=== PATIENT | female | born 1945 ===

== ENCOUNTER 2023-11-20 14:15 | Day surgery (SDC) | payer BC, SELFPAY ==
[2023-11-20] VITALS (10 sets, daily range): BP systolic 125–196; BP diastolic 65–179; BMI 23.2
[2023-11-20 13:54] LABS: Glucose - Point of Care 131 mg/dl (70-99)
[2023-11-20] MEDS: ZOFRAN 4 MG IV (17:05)
[2023-11-20 17:12] LABS: Glucose - Point of Care 130 mg/dl (70-99)
== END 2023-11-20 18:00 | disposition short-term general hospital (02) ==
LOC: SDS 14:15
PROVIDERS: ATTENDING PHYSICIAN Internal Medicine Gastroenterology
DX: K85.10 Biliary acute pancreatitis without necrosis or infection (principal); K80.20 Calculus of gallbladder without cholecystitis without obstruction; K83.8 Other specified diseases of biliary tract; R93.3 Abnormal findings on diagnostic imaging of other parts of digestive tract; R93.5 Abnormal findings on diagnostic imaging of other abdominal regions, including retroperitoneum
CPT/HCPCS: 43259; 43274; 43261; 88305; 74330; 76000; 82962; C1769; C2617